=== PATIENT | female | born 1965 | race Caucasian/White ===

== ENCOUNTER 2019-10-14 14:12 | Emergency (ER) | payer SELFPAY ==
[~2019-10-14] VITALS: Ht 167.6 cm; Wt 43.1 kg
[2019-10-14 15:53] LABS: Chloride 110 mmol/L (98-107); Potassium 3.8 mmol/L (3.5-5.1); Sodium 142 mmol/L (136-145)
[2019-10-14 15:59] LABS: Alanine Aminotransferase 18 U/L (13-56); Albumin 4.1 g/dL (3.4-5.0); Alkaline Phosphatase 67 U/L (45-117); Anion Gap 8 (5-15); Aspartate Aminotransferase 18 U/L (15-37); Bilirubin, Total 0.5 mg/dL (0.2-1.0); Blood Urea Nitrogen 18 mg/dL (7-18); Calcium 9.4 mg/dL (8.5-10.1); Carbon Dioxide 24 mmol/L (21-32); GFR African American 93 mL/min; GFR Non-African American 77 mL/min; Glucose 69 mg/dL (74-106); Magnesium 2.1 mg/dL (1.6-2.6); Total Protein 7.6 g/dL (6.4-8.2)
[2019-10-14 17:20] LABS: Basophils # (auto) 0.1 10 ^3/uL (0-0.2); Eosinophils # (auto) 0.1 10 ^3/uL (0-0.8); Eosinophils % (auto) 0.8 % (0.0-7.0); Hematocrit 49.7 % (36.0-46.0); Hemoglobin 16.4 g/dL (12.2-16.2); Lymphocytes % (auto) 39.8 % (10.0-50.0); Mean Corpuscular Hemoglobin 31.1 pg (28.0-32.0); Mean Corpuscular Volume 94.2 fL (80.0-100.0); Monocytes # (auto) 0.6 10 ^3/uL (0-1.3); Monocytes % (auto) 7.4 % (0.0-12.0); Neutrophils # (auto) 3.8 10 ^3/uL (1.6-8.6); Nucleated Red Blood Cells % 0.2 %; Platelet Count (auto) 212 10^3/uL (140-450); Red Blood Cells 5.27 10^6/uL (4.0-5.20); Red Cell Distribution Width 13.2 % (11.8-14.3); White Blood Cell 7.5 10^3/uL (4.4-10.8)
[2019-10-14 22:32] LABS: Urine Bacteria FEW /hpf (None Seen); Urine Blood Negative /uL (Negative); Urine Hyaline Cast FEW /lpf (0 - 2); Urine Mucus FEW (None Seen); Urine Specific Gravity 1.029 (1.001-1.035); Urine WBC 24 /hpf (0 - 5)
[2019-10-14 22:40] LABS: Alcohol, Urine < 3.0 mg/dL (0-10); Amphetamine Screen, Urine NEGATIVE (NEGATIVE); Barbiturate Scree,Urine NEGATIVE (NEGATIVE); Benzodiazephine Screen, Urine NEGATIVE (NEGATIVE); Cannabinoid Screen, Urine NEGATIVE (NEGATIVE); Cocaine Screen, Urine NEGATIVE (NEGATIVE); Opiate Scree,Urine NEGATIVE (NEGATIVE); Phencyclidine Screen, Urine NEGATIVE (NEGATIVE)
[2019-10-14] MEDS ORDERED: cefTRIAXone SOD 1,000 MG VL IM ONE (22:45)
[2019-10-14] MEDS ORDERED: LIDOCAINE 1% HCL (LOCAL ANESTH.) INJ 20ML MDV ONE (23:04)
[2019-10-14 23:09] VITALS: BP 127/96
== END 2019-10-14 23:23 | disposition home or self-care (01) ==
LOC: ER 14:12
DX: N39.0 Urinary tract infection, site not specified (principal); F20.9 Schizophrenia, unspecified; Z68.1 Body mass index [BMI] 19.9 or less, adult
CPT/HCPCS: 36415; 80053; 80307; 81001; 83735; 84484; 85025; 96372; 99284; J0696; J2001

== ENCOUNTER 2019-10-23 13:27 | Inpatient (IN) | payer OTHER ==
[~2019-10-23] VITALS: Ht 165.1 cm; Wt 46.6 kg
[2019-10-23] MEDS ORDERED: LORazepam 2MG/ML-1ML VIAL IV ONE (13:45)
[2019-10-23] MEDS ORDERED: SODIUM CHLORIDE 0.9% 500 ML IV ONE (13:45)
[2019-10-23 14:11] LABS: Basophils # (auto) 0 10 ^3/uL (0-0.2); Basophils % (auto) 0.6 % (0.0-2.0); Eosinophils # (auto) 0 10 ^3/uL (0-0.8); Eosinophils % (auto) 0.5 % (0.0-7.0); Hematocrit 45.6 % (36.0-46.0); Hemoglobin 15.3 g/dL (12.2-16.2); Lymphocytes # (auto) 1.6 10 ^3/uL (0.4-5.4); Lymphocytes % (auto) 30.9 % (10.0-50.0); Mean Corpuscular Hemoglobin 31.4 pg (28.0-32.0); Mean Corpuscular Hgb Conc. 33.5 g/dL (32.0-36.0); Mean Corpuscular Volume 93.8 fL (80.0-100.0); Monocytes # (auto) 0.4 10 ^3/uL (0-1.3); Monocytes % (auto) 8.6 % (0.0-12.0); Neutrophils # (auto) 3.1 10 ^3/uL (1.6-8.6); Neutrophils % (auto) 59.4 % (37.0-80.0); Nucleated Red Blood Cells % 0.1 %; Platelet Count (auto) 185 10^3/uL (140-450); Red Blood Cells 4.87 10^6/uL (4.0-5.20); Red Cell Distribution Width 13.1 % (11.8-14.3); White Blood Cell 5.2 10^3/uL (4.4-10.8)
[2019-10-23 14:34] LABS: Albumin 4.1 g/dL (3.4-5.0); Anion Gap 10 (5-15); Blood Urea Nitrogen 15 mg/dL (7-18); Calcium 9.4 mg/dL (8.5-10.1); Carbon Dioxide 24 mmol/L (21-32); Chloride 104 mmol/L (98-107); Glucose 55 mg/dL (74-106); Potassium 4.8 mmol/L (3.5-5.1); Sodium 138 mmol/L (136-145)
[2019-10-23 14:39] LABS: Alanine Aminotransferase 18 U/L (13-56); Alkaline Phosphatase 61 U/L (45-117); Aspartate Aminotransferase 14 U/L (15-37); BUN/Creatinine Ratio 13.4; Bilirubin, Total 0.6 mg/dL (0.2-1.0); Blood Alcohol < 3.0 mg/dL (0-5); GFR African American 65 mL/min; GFR Non-African American 53 mL/min; Total Protein 7.4 g/dL (6.4-8.2)
[2019-10-23] MEDS: ACCU-CHEK COMFORT CURVE STRIP VI SCH ×2 (16:00→21:37)
[2019-10-23] MEDS ORDERED: MORPHINE SULF INJ 2 MG/ML SYRINGE 1ML IV PRN (16:00)
[2019-10-23] MEDS ORDERED: DEXTROSE (50%) 50ML SYRG IV PRN (16:00)
[2019-10-23] MEDS: InsuLIN REG 1unit/0.01ml Soln (100units/ml) SC SCH ×2 (16:00→20:00)
[2019-10-23] MEDS ORDERED: D5W/SOD CHLO 0.9% 1,000 ML IV ONE (16:00)
[2019-10-23] MEDS ORDERED: hydrALAZINE HCL 20 MG/ML VL IV PRN (16:00)
[2019-10-23] MEDS ORDERED: NITROGLYCERIN 0.4 MG SL TAB SL PRN (16:00)
--- NOTE | 2019-10-23 19:47 | NUR ---
Telemetry admit from EMILEE HOUGH admitted to Telemetry unit after SBAR received. Patient oriented to JAKY garcia RN, thoreau unit, room 89, bed A, and unit policies regarding patient care and visiting hours. Patient now on continuous telemetry monitoring, tele box # 57 and telemetry reading on arrival to unit is Sinus Rhythm. Patient placed on bed, on room air O2 100%, weighed 39.1kg on bedscale, encouraged to call if they need something. All questions and concerns addressed, patient verbalized understanding. Assessment performed, skin is intact, patient able to move all extremities without limitations, patient c/o abdominal pain 6/10, explained that she has not been eating and her last B/M was 2 weeks ago. Patient was given apple juice, tolerated well. Will cont to monitor.
[2019-10-23 22:00] VITALS: BP 140/85
[2019-10-24] VITALS (7 sets, daily range): BP systolic 96–131; BP diastolic 57–70
[2019-10-24] MEDS: ACCU-CHEK COMFORT CURVE STRIP VI SCH ×6 (00:10→20:00)
[2019-10-24] MEDS: InsuLIN REG 1unit/0.01ml Soln (100units/ml) SC SCH ×6 (03:39→20:00)
--- NOTE | 2019-10-24 07:38 | NUR ---
Opening Shift Note Received patient from noc shift rn, awake and alert. No S/S of distress/SOB, denies pain at this time. Bed in lowest and locked position, bed rails raised x2, call light within reach. Instructed on POC and to call for assist PRN, will continue to monitor for changes Q1hr and PRN.
[2019-10-24 09:31] LABS: Basophils # (auto) 0.1 10 ^3/uL (0-0.2); Basophils % (auto) 1.2 % (0.0-2.0); Eosinophils # (auto) 0.1 10 ^3/uL (0-0.8); Eosinophils % (auto) 2.6 % (0.0-7.0); Hematocrit 38.2 % (36.0-46.0); Hemoglobin 12.9 g/dL (12.2-16.2); Lymphocytes # (auto) 1.2 10 ^3/uL (0.4-5.4); Lymphocytes % (auto) 28.3 % (10.0-50.0); Mean Corpuscular Hemoglobin 31.5 pg (28.0-32.0); Mean Corpuscular Hgb Conc. 33.8 g/dL (32.0-36.0); Mean Corpuscular Volume 93.1 fL (80.0-100.0); Monocytes # (auto) 0.5 10 ^3/uL (0-1.3); Neutrophils # (auto) 2.4 10 ^3/uL (1.6-8.6); Neutrophils % (auto) 56.9 % (37.0-80.0); Platelet Count (auto) 170 10^3/uL (140-450); Red Cell Distribution Width 13.1 % (11.8-14.3); White Blood Cell 4.2 10^3/uL (4.4-10.8)
[2019-10-24 09:47] LABS: Albumin 3.1 g/dL (3.4-5.0); Calcium 8.3 mg/dL (8.5-10.1); Potassium 3.7 mmol/L (3.5-5.1)
[2019-10-24 09:49] LABS: Lactic Acid w/Reflex 2.8 mmol/L (0.4-2.0)
[2019-10-24 09:52] LABS: Bilirubin, Total 0.3 mg/dL (0.2-1.0); Total Protein 5.7 g/dL (6.4-8.2)
[2019-10-24] MEDS ORDERED: ENOXAPARIN SOD 30 MG/0.3 ML SYRINGE SC SCH (10:00)
[2019-10-24] MEDS ORDERED: PANTOPRAZOLE 40 MG/10 ML VIAL INJ IV SCH (10:00)
--- NOTE | 2019-10-24 10:25 | NUR ---
patient refused AM medication, protonix and lovenox. Stated "I don't think I need it." Patient educated on meds but continues to refuse.
--- NOTE | 2019-10-24 13:33 | NUR ---
attempted to contact family on contact list for home medication. Unable to reach anyone at this time. Will try at a later time
--- NOTE | 2019-10-24 14:39 | NUR ---
Nutrition Assessment/Consult Notes Please refer to link for full assessment notes. Est Energy needs: [address] kcals (20-23 kcal/kgBW) Est Protein needs: 47-59 gms/day (0.8-1.0 gm/kgBW) Will continue to monitor and reassess prn. Addendum: 10/24/19 at [address] Amended: Links added.
--- NOTE | 2019-10-24 15:30 | NUR ---
Tele Psych: Patient connected and talking to psychiatrist via [facility]
--- NOTE | 2019-10-24 18:10 | NUR ---
Tele psych report in the chart.
--- NOTE | 2019-10-24 19:20 | NUR ---
Opening Shift Note Received report from david Leger RN. Assumed care of patient, awake and alert. No S/S of distress/SOB or pain. Instructed on POC and to call for assist PRN, will continue to monitor for changes Q1hr and PRN. Bed placed in lowest position and call light within reach.
--- NOTE | 2019-10-24 22:15 | NUR ---
Dr Dill at bedside.
[2019-10-24] MEDS ORDERED: LORazepam 2MG/ML-1ML VIAL IV PRN (22:45)
[2019-10-25] VITALS (7 sets, daily range): BP systolic 124–146; BP diastolic 70–86
[2019-10-25] MEDS: InsuLIN REG 1unit/0.01ml Soln (100units/ml) SC SCH ×6 (04:00→20:00)
--- NOTE | 2019-10-25 04:00 | NUR ---
ROUNDS PATIENT IS AWAKE AND ALERT, BUT REFUSED TO RESPOND TO SIMPLE QUESTIONS. PATIENT SEEMED UNHAPPY WHEN STAFF WOKE HER UP TO DO VITALS AND BLOOD SUGAR CHECK. WILL MONITOR.
[2019-10-25] MEDS: ACCU-CHEK COMFORT CURVE STRIP VI SCH ×6 (04:18→20:00)
--- NOTE | 2019-10-25 07:37 | NUR ---
Opening Shift Note Received patient from noc shift rn, eyes closed in bed but easily aroused by name call. No S/S of distress/SOB, denies pain at this time. Patient is not verbalizing with responses, only shakes head or remains still even with multiple prompt to speak. Bed in lowest and locked position, bed rails raised x2, call light within reach. Instructed on POC and to call for assist PRN, will continue to monitor for changes Q1hr and PRN.
--- NOTE | 2019-10-25 10:00 | NUR ---
Dr. Levi at bedside Ordered Ativan 1mg Q8hr straight cath to obtain sample for UA/UD and sitter
[2019-10-25] MEDS ORDERED: LORazepam 0.5 MG TAB PO PRN (10:15)
[2019-10-25] MEDS: D5W/SOD CHLO 0.9% 1,000 ML IV SCH (12:01)
--- NOTE | 2019-10-25 12:04 | NUR ---
EEG- PATIENT REFUSED ELECTROENCEPHALOGRAM @ 09:20.
--- NOTE | 2019-10-25 12:14 | NUR ---
patient refused ativan, after requesting for it. Will waste at this time.
--- NOTE | 2019-10-25 12:15 | NUR ---
Patient is refusing straight cath as ordered for UA/UD, stating "I want to go home"
--- NOTE | 2019-10-25 13:00 | NUR ---
patient refused EEG when staff attempted Also refusing to eat.
--- NOTE | 2019-10-25 13:40 | NUR ---
PATIENT WAS UNCOOPERATIVE DURING TELE-PSYCH EVAL. REFUSED TO TALK TO THE DOCTOR.
--- NOTE | 2019-10-25 14:00 | NUR ---
SPOKE TO DR. Tori SANFORD ABOUT PATIENT'S REFUSAL FOR TREATMENT. NEW TELE PSYCH CONSULT PLACED.
--- NOTE | 2019-10-25 14:22 | NUR ---
SPOKE TO CHARGE NURSEMARILY ABOUT MD'S ORDER FOR SITTER AT BEDSIDE. PER CHARGE NURSE, PATIENT DOES NOT MEET CRITERIA FOR A SITTER.
--- NOTE | 2019-10-25 18:30 | NUR ---
Urine collected and sent to lab for UA/UDS per MD's order
[2019-10-25 19:12] LABS: Urine Bacteria NONE SEEN /hpf (None Seen); Urine Blood Negative /uL (Negative); Urine Hyaline Cast FEW /lpf (0 - 2); Urine Mucus FEW (None Seen); Urine Specific Gravity 1.017 (1.001-1.035); Urine WBC 40 /hpf (0 - 5)
--- NOTE | 2019-10-25 19:25 | NUR ---
Opening Shift Note Assumed care of patient, awake and alert. No S/S of distress/SOB or pain, but patient refused to answer questions. Instructed on POC and to call for assist PRN, will continue to monitor for changes Q1hr and PRN. Bed placed in lowest position, and call light within reach.
[2019-10-25 19:29] LABS: Alcohol, Urine < 3.0 mg/dL (0-10); Amphetamine Screen, Urine NEGATIVE (NEGATIVE); Barbiturate Scree,Urine NEGATIVE (NEGATIVE); Benzodiazephine Screen, Urine POSITIVE (NEGATIVE); Cannabinoid Screen, Urine NEGATIVE (NEGATIVE); Cocaine Screen, Urine NEGATIVE (NEGATIVE); Opiate Scree,Urine NEGATIVE (NEGATIVE); Phencyclidine Screen, Urine NEGATIVE (NEGATIVE)
--- NOTE | 2019-10-25 21:00 | NUR ---
Offered something to eat and drink Offered patient and placed 2 jellos and cold drink of water and 2 juices on the table. Still no response.
[2019-10-26] MEDS: ACCU-CHEK COMFORT CURVE STRIP VI SCH ×6 (00:18→20:30)
[2019-10-26] MEDS: D5W/SOD CHLO 0.9% 1,000 ML IV SCH ×3 (00:19→18:00)
[2019-10-26] MEDS: InsuLIN REG 1unit/0.01ml Soln (100units/ml) SC SCH ×6 (04:00→20:00)
[2019-10-26 05:00] VITALS: BP 133/74
--- NOTE | 2019-10-26 06:09 | NUR ---
ROUNDS Patient still not talking. Patient opens eyes but not responding to questions. Jellos and juices untouched and still on the table. Patient refused to eat or drink last night.
[2019-10-26 09:00] VITALS: BP 155/84
--- NOTE | 2019-10-26 09:30 | NUR ---
Attempted PT treatment, pt would not open eyes to participate in PT session.
[2019-10-26 10:09] LABS: Free T4 (Free Thyroxine) 0.79 ng/dL (0.89-1.76)
--- NOTE | 2019-10-26 12:13 | NUR ---
PT DOES NOT RESPOND TO VERBAL OR TACTILE STIMULI. AT APPROX. 1130, NOTED EYES TO BE OPENED AND PT MOTIONED TOWARD THE BATHROOM. AMBULATED PT TO BATHROOM, URINATED LARGE AMOUNT TEA COLORED URINE. BLOOD SUGAR 104. AT THIS TIME PT OFF FLOOR FOR MRI. CONTINUES TO BE NONVERBAL. MONITORING CLOSELY.
[2019-10-26 13:00] VITALS: BP 138/82
--- NOTE | 2019-10-26 15:28 | NUR ---
EEG- PT REFUSED ELECTROENCEPHALOGRAM @ 14:08
--- NOTE | 2019-10-26 15:52 | NUR ---
PT REFUSED EEG.
--- NOTE | 2019-10-26 16:02 | NUR ---
assessment re:bhavya consults Patient is a 54 year old catatonic female. Per patients Miquel and her daughter Danielle prior to admission patient lived home with her and needed assistance when she becomes catatonic. When she is not patient can function on her own. Per Miquel and Danielle the first time patient became catatonic was about 2 years ago. Patient did go to a psychiatrist at that time. Patient was diagnosed with catatonia/ schizophrenic. Per Danielle patient was doing well until she stopped taking her medication. Patient will need a tele psych and psych placement. Danielle and Miquel agree to psych placement. Addendum: 10/26/19 at 1616 by Ivis CORDERO Amended: Links added.
[2019-10-26 17:00] VITALS: BP 148/81
--- NOTE | 2019-10-26 18:17 | NUR ---
MRI COMPLETE AND RESULTED
--- NOTE | 2019-10-26 19:30 | NUR ---
Opening Shift Note Assumed care of patient, awake, flat affect, lying in bed. No S/S of distress/SOB, no facial grimace for pain. Patient not responding to questions, not moving, patient diagnosed with catatonia. Instructed on POC and to call for assist PRN, bed alarm on at all times for patient safety. Will continue to monitor for changes Q1hr and PRN.
[2019-10-26 22:00] VITALS: BP 158/90
[2019-10-27] MEDS: ACCU-CHEK COMFORT CURVE STRIP VI SCH ×6 (00:20→20:27)
[2019-10-27] MEDS: InsuLIN REG 1unit/0.01ml Soln (100units/ml) SC SCH ×6 (04:00→20:00)
[2019-10-27] MEDS: D5W/SOD CHLO 0.9% 1,000 ML IV SCH ×2 (04:04→14:00)
[2019-10-27 05:00] VITALS: BP 149/86
--- NOTE | 2019-10-27 07:14 | NUR ---
No significant change in the patient's status. No signs nor symptoms of respiratory distress, no facial grimace for pain. Bed alarm on at all times for patient safety. Report given to oncoming shift.
--- NOTE | 2019-10-27 09:25 | NUR ---
PT SITTING UPRIGHT, RIGID, FIXED GAZE. DROOLING. INCONT. LARGE AMT URINE. VERY STIFF. , OBI, UPDATED VIA TELEPHONE.
--- NOTE | 2019-10-27 10:00 | NUR ---
Attempted PT eval. Pt resisting and not following commands when attempting to assist out of bed. Pt unable to participate in physical therapy at this time.
--- NOTE | 2019-10-27 13:14 | NUR ---
EEG- PT REFUSED ELECTROENCEPHALOGRAM @11:19.
--- NOTE | 2019-10-27 14:16 | NUR ---
incont. of urine. pt continues to have a fixed stare, mute, catatonic. refuses to eat.
--- NOTE | 2019-10-27 14:50 | NUR ---
Nutrition Followup Note Wt 42.2kg Pt was awake at time of rounds. Per MD note pt catatonic, pt just stared and did not respond to any questions. Pt has a full liquid diet with poor po intake aeb pt with 1 intake of 25%, 1 intake of 50% and refused to eat per RN note. Consider adding Ensure Enlive TID if pt will consume oral supplements. If pt continues to refuse nutrition consider alternate nutrition. Est Energy needs: 9193-6964 kcals (25-30 kcal/kg IBW 56.8kg) Est Protein needs: 57-62 gms/day (1-1.1 gm/kg IBW 56.8kg) Will continue to monitor and reassess prn. Labs: POC gluc 121H, Alb 3.1L, Ca 8.3L BM: Pt with no BM noted per Rn note Skin: Bs 16 mod risk, full details in managed care coordinator note PES 1) Inadequate oral intake r/t pt with a poor appetite aeb 64% IBW, BMI of 13.9 kg/m2, pt refusal to eat Comments Will continue to monitor PO status, skin status, pertinent labs and weight trends. Will f/u in 3-5 days. 1) Continue to carefully monitor pt PO intake to meet at least 75% of meals 2) If pt appetite remains poor over the next 48 hours, consider supplemental nutrition support 3) Continue current plan of care Expected Outcomes/Goals: Pt appetite to improve Pt to advance to an oral diet
[2019-10-27 22:45] VITALS: BP 160/100
[2019-10-28] MEDS: InsuLIN REG 1unit/0.01ml Soln (100units/ml) SC SCH ×6 (00:58→22:00)
[2019-10-28] MEDS: ACCU-CHEK COMFORT CURVE STRIP VI SCH ×6 (00:59→22:43)
[2019-10-28] MEDS: D5W/SOD CHLO 0.9% 1,000 ML IV SCH ×3 (01:17→20:00)
--- NOTE | 2019-10-28 04:45 | NUR ---
Offered multiple times to eat and drink. Cued food/drink to mouth, and patient refuses each time. Will continue to monitor patient. Patient has and will be turned q2 hours or prn for skin breakdown prevention.
[2019-10-28 05:30] VITALS: BP 135/86
--- NOTE | 2019-10-28 07:20 | NUR ---
provided report to day rn. notified rn of patient refusing everything, eating, drinking, and procedures from days. also notified patient needs to be turned q 2 or prn and patient needs to be check consistently due to urine incontinence. and patient is non verbal
--- NOTE | 2019-10-28 08:00 | NUR ---
Opening shift note/spoke w family/refused accucheck Patient in bed with altered level of conscious unable to verbalize answer to questions. Patient does not acknowledge name when called an no attempts to communicate noted. Attempted to reposition patient at this time patient became verbal and stated she did not want to be moved. Patient updated on POC. Patient refusing accucheck reading at this time. Patient continues to pull arm away when attempting to obtain accucheck. Bed is in low position, locked, call light within reach. Education regarding use of call light given, patient passive to education given. Spoke with patient's over phone. Quick update given regarding patients current state. All questions and concerns addressed, will continue care.
--- NOTE | 2019-10-28 08:37 | NUR ---
Elevated BP Dr Tori Levi informed that Hydralazine PRN is not available per pharmacy to administer for elevated BP. Patient B/P reading is 158/98, HR 91. informed fluids have been stopped at this time. No new orders received by . Will continue to monitor.
[2019-10-28 09:00] VITALS: BP 158/98
--- NOTE | 2019-10-28 11:00 | NUR ---
WOUND CARE NOTE: PATIENT NOTED TO HAVE LOW RADHA SCORE OF 7, ADDED PATIENT TO SKIN INTEGRITY MONITORING. PATIENT WAS ADMITTED TO [facility] WITH DIAGNOSIS OF ALOC. SHE IS NOTED TO BE VERY THIN, WEIGHING ONLY 43 KG. PATIENT HAS PROMINENT BONY PROMINENCES. PATIENT IS IN CATATONIC STATE, NON VERBAL, IMMOBILE. SHE IS NOTED TO BE INCONTINENT OF URINE AT THIS TIME. PERICARE GIVEN ALONG WITH LINEN CHANGE. SHE HAS NO WOUNDS NOTED. APPLIED OPTIFOAM GENTLE SACRAL DRESSING TO UPPER SACRUM PREVENTATIVE. ORDERED SPECIALTY AIR MATTRESS AT THIS TIME. PATIENT TO BE PLACED, PENDING DELIVERY BY [facility]. SKIN/WOUND CARE PLAN IMPLEMENTED. RECOMMEND: FREQUENT TURN SCHEDULE Q 2 HOURS, PRN CONDITION PERMITS, WITH PRESSURE REDISTRIBUTION USING PILLOWS/WEDGES, BID/PRN APPLICATION WITH MOISTURE BARRIER CREAM, OPTIFOAM GENTLE SACRAL DRESSING, SPECIALTY AIR MATTRESS, DIETARY CONSULT FOR LOW RADHA SCORE, SKIN/WOUND CARE PLAN, CONTINUED MONITORING BY WOUND CARE TEAM.
[2019-10-28] MEDS ORDERED: DEXTROSE (50%) 50ML SYRG IV PRN (11:30)
--- NOTE | 2019-10-28 12:00 | NUR ---
Tele Psych request placed Per Dr. Tori Levi orders to [facility] Tele Psych request. Request has been placed at this time. Awaiting to be contacted by Psychiatrist.
--- NOTE | 2019-10-28 12:50 | NUR ---
Neurologist paged after info from family obtained. Spoke with patient's mom after password was verified. Family requesting update on patient's condition from MD. Both Dr. Tori Levi hospitalist and Dr. Dill Neurologist have been notified. Patient's mom informed me that patient has history of Pituitary tumor for over 10 years now. Information was provided to Dr. Dill over phone, new orders received at this time to obtain MRI of Pituitary gland with and without contrast. Will implement orders and continue to monitor.
--- NOTE | 2019-10-28 13:04 | NUR ---
RN communication Received call from Dr. Tori Levi informing this RN that requested update had been given to patient's by . Dr. Tori Levi approving and daughter to visit patient do to her rapid decline in condition on 10/29/2019 at 1100. cement railroad car loader Paras has been made aware of scheduled visit at this time.
[2019-10-28 13:07] VITALS: BP 129/76
[2019-10-28] MEDS ORDERED: GADOTERIDOL 279.3mg/mL 20ml Vial IV ONE (13:52)
--- NOTE | 2019-10-28 16:28 | NUR ---
PT WAS UNABLE TO PARTICIPATE IN P.T TODAY. Addendum: 10/28/19 at 1629 by KRISTINE JARRETT PTT Amended: Links added.
[2019-10-28 17:00] VITALS: BP 115/72
--- NOTE | 2019-10-28 21:00 | NUR ---
patient transferred to special mattress.
[2019-10-28 22:00] VITALS: BP 150/81
--- NOTE | 2019-10-28 22:19 | NUR ---
Spoke to Min from tele psyc center [phone]. Min advised me tele psyc completed at 0300 pm eastern time and he will send report via fax. fax number provided. awaiting report.
--- NOTE | 2019-10-28 23:00 | NUR ---
Report faxed and placed in physical chart.
[2019-10-29] MEDS: D5W/SOD CHLO 0.9% 1,000 ML IV SCH ×2 (00:28→16:00)
--- NOTE | 2019-10-29 03:41 | NUR ---
patient has not voided for shift patient has shea order. bladder scan 320 Shea catheter insertion Patient assessed and determined to be in need of shea catheter. Order placed in dayshift from Gurmeet PONCE. Patient educated on catheter and reason for insertion. Shea catheter [14] guage Bhutanese inserted with clean sterile technique. Patient tolerated well. post shea insertion output 300
[2019-10-29 05:00] VITALS: BP 157/94
[2019-10-29] MEDS: InsuLIN REG 1unit/0.01ml Soln (100units/ml) SC SCH ×4 (06:56→22:00)
[2019-10-29] MEDS: ACCU-CHEK COMFORT CURVE STRIP VI SCH ×4 (06:57→22:21)
--- NOTE | 2019-10-29 07:25 | NUR ---
Provided report to day RN, patient is resting in bed with no signs of distress. Patient has strict turned/repositioned q2 hours or prn throughout entire shift. Patient has been offered nutrition each time we turned-patient refused. shea draining and patient is on specialty mattress.
--- NOTE | 2019-10-29 07:30 | NUR ---
Opening shift note Patient in bed with altered level of conscious unable to verbalize answer to questions. Patient does not acknowledge name when called an no attempts to communicate noted. Patient turned to right side at this time. Strict turn q2 hr orders in place. Patient offered breakfast at this time, patient refusing to eat or drink. Rachel secured below waistline draining clear yellow urine. Bed is in low position, locked, call light within reach. Will continue care.
--- NOTE | 2019-10-29 08:23 | NUR ---
Pt has been unable to participate in physical therapy x3 days. Will discharge pt from caseload until she is able to participate.
[2019-10-29 09:00] VITALS: BP 153/98
--- NOTE | 2019-10-29 11:05 | NUR ---
Pt Family at bedside Approved visit to family by MD. and patient's mom at bedside at this time.
--- NOTE | 2019-10-29 11:20 | NUR ---
Dr. Levi at bedside updating family Dr. Levi at bedside updating family regarding patient's condition and POC to place 5150 hold on patient and transfer to a Psychiatry facility as soon as it is possible. All questions and concerns addressed at this time by . This RN was present at bedside.
[2019-10-29] MEDS ORDERED: LORazepam 0.5 MG TAB PO PRN (11:30)
[2019-10-29] MEDS ORDERED: LORazepam 2MG/ML-1ML VIAL IV SCH ×2 (12:00)
[2019-10-29] MEDS: LORazepam 2MG/ML-1ML VIAL IV PRN ×2 (12:00→22:53)
--- NOTE | 2019-10-29 12:50 | NUR ---
Patient AOx1 and verbal Upon hourly rounds patient was observed to be awake and speaking to self. No constriction or abnormal flexion noted on arms at this time. Neuro checked perform patient alert to self. Patient remains mildly confused and is having audiovisual hallucinations at this time. Per patient there is a little girl in the room called Mateo that is playing with her ball. Patient offered food at this time, patient continues to refuse food. No agitation or distress noted. Patient requesting to speak with Miquel (). called at this time. Will continue care.
[2019-10-29 13:00] VITALS: BP 145/88
--- NOTE | 2019-10-29 14:20 | NUR ---
Patient found on floor by Ellen RN at 1405. Patient helped back to bed. This RN was notified and came in room to assess patient. Right forearm noted to have been bleeding s/p IV removal. No active bleeding at this time, site covered with gauze and secured with [place]. Rachel found laying in bed with balloon intact. No trauma noted to patient, catheter intact. Complete body inspection performed at this time, no open wounds noted. VS taken and stable at this time. Patient repositioned for comfort, no complains of pain at this time. Bed alarm on, side rails x2 up, patient instructed to call for assistance and reminded she can not get out of bed without help. Patient verbalized understanding and repeated information provided. Dr. Levi has been made aware of incident. No new orders received at this time.
--- NOTE | 2019-10-29 14:40 | NUR ---
Patient refusing IV placement Patient refusing IV to be placed at this time. Patient informed of risks of not having IV line present during hospitalizations and in case of emergency. Patient verbalizes understanding and continues to refuse she states she has been connected to an IV line for too long and she is sore from her arms. Will attempt IV placement at a later time. has been informed of refusal.
--- NOTE | 2019-10-29 14:49 | NUR ---
Nutrition Followup Note Wt 42.9kg Pt did not respond when attempting to ask questions this morning. Per pt DC order pt is awaiting transfer to Inpatient Facility. Consider starting pt on alternate nutrition as pt continues to refuse meals. Consider starting pt on Osmolite 1.2 at 50 ml/hr. Est Energy needs: 3446-0301 kcals (25-30 kcal/kg IBW 56.8kg) Est Protein needs: 57-62 gms/day (1-1.1 gm/kg IBW 56.8kg) Will continue to monitor and reassess prn. Labs: Pt with no new labs: Alb 3.1L, Ca 8.3L POC GLUC 92 WNL BM: Pt with no BM noted per Rn note Skin: Bs 7 high risk, full details in occasional caregiver note PES 1) Inadequate oral intake r/t pt with a poor appetite aeb 64% IBW, BMI of 13.9 kg/m2, pt refusal to eat Comments Will continue to monitor PO status, skin status, pertinent labs and weight trends. Will f/u in 3-5 days. 1) Consider alternate nutrition per MD approval. 2) If alternate nutrition recommended consider Osmolite 1.2 at 50 ml/hr per MD approval Expected Outcomes/Goals: Pt appetite to improve Pt to advance to an oral diet
[2019-10-29] MEDS ORDERED: ACETAMINOPHEN 325 MG TAB PO PRN (15:15)
[2019-10-29 17:00] VITALS: BP 100/72
--- NOTE | 2019-10-29 19:00 | NUR ---
Opening Shift Note Assumed care of patient, awake, flat affect, lying in bed. No S/S of distress/SOB, no facial grimace for pain. Patient not responding to questions, not moving, patient diagnosed with catatonia. Instructed on POC and to call for assist PRN, bed alarm on at all times for patient safety. Will continue to monitor for changes. Sitter in the room for safety. Noted patient has no iv access.
--- NOTE | 2019-10-29 22:55 | NUR ---
IV insertion IV access obtained, via clean sterile technique by inserting 22 gauge catheter at right forearm after 1 attempt. IV secured properly. No trauma to site. Patient tolerated well.
[2019-10-30] MEDS: D5W/SOD CHLO 0.9% 1,000 ML IV SCH ×4 (02:14→22:00)
[2019-10-30 06:23] VITALS: BP 113/67
[2019-10-30] MEDS: ACCU-CHEK COMFORT CURVE STRIP VI SCH ×4 (06:25→23:03)
[2019-10-30] MEDS: InsuLIN REG 1unit/0.01ml Soln (100units/ml) SC SCH ×4 (06:26→22:00)
--- NOTE | 2019-10-30 08:06 | NUR ---
OPENING SHIFT NOTE Assumed care of patient, awake with flat affect. Does not respond to questions. No S/S of distress/SOB or pain. Instructed on POC and to call for assist PRN, will continue to monitor for changes Q1hr and PRN. Bed is locked and in lowest position. Call light within reach.
--- NOTE | 2019-10-30 10:00 | NUR ---
Faxed IP [phone] placement request to the following locations: [facility] [phone], [facility] [phone], [facility] [phone], [facility] [phone] and [facility] [phone]. Awaiting reply back for acceptance of patient.
--- NOTE | 2019-10-30 10:44 | NUR ---
PT's is requesting to have md call him. Stated he spoke with PT yesterday and this morning. However pt had flat affect during assessment. stated this was not in line with his conversation with pt.
--- NOTE | 2019-10-30 12:17 | NUR ---
Called and spoke with Will regarding only receiving a few pages of the intake information for bed placement. He will fax over everything once more to continue.
--- NOTE | 2019-10-30 13:28 | NUR ---
Received intake and information has been sent out to [facility]. Will keep facility informed of any updates.
[2019-10-30] MEDS: LORazepam 2MG/ML-1ML VIAL IM SCH (23:02)
--- NOTE | 2019-10-31 03:42 | NUR ---
Called the following facilities [facility] s/w Devin-no bed availability [facility]-no answer-not able to leave message. Will try again
[2019-10-31] MEDS: InsuLIN REG 1unit/0.01ml Soln (100units/ml) SC SCH ×4 (06:17→21:34)
[2019-10-31] MEDS: ACCU-CHEK COMFORT CURVE STRIP VI SCH ×4 (06:17→21:35)
--- NOTE | 2019-10-31 07:30 | NUR ---
Opening Shift Note Assumed care of patient, sleeping sitter at bedside. No S/S of distress/SOB or pain. Patient is placed on a 5150 hold, will continue to monitor for changes Q1hr and PRN.
[2019-10-31 09:00] VITALS: BP 145/68
[2019-10-31] MEDS: D5W/SOD CHLO 0.9% 1,000 ML IV SCH ×2 (09:22→16:48)
[2019-10-31] MEDS: LORazepam 2MG/ML-1ML VIAL IM SCH ×2 (10:32→21:38)
--- NOTE | 2019-10-31 12:30 | NUR ---
MEGHANN wang paged regarding discharge, awaiting call back.
[2019-10-31 13:00] VITALS: BP 136/71
--- NOTE | 2019-10-31 15:08 | NUR ---
Patients is requesting to see patient if possible, awaiting management.
[2019-10-31 17:00] VITALS: BP 127/79
--- NOTE | 2019-10-31 19:30 | NUR ---
Opening Shift Note Assumed care of patient, awake and alert. No S/S of distress/SOB or pain. Sitter at bedside.Instructed on POC and to call for assist PRN, will continue to monitor for changes Q1hr and PRN.
[2019-10-31 22:17] VITALS: BP 134/79
[2019-11-01] VITALS (7 sets, daily range): BP systolic 127–161; BP diastolic 74–94
[2019-11-01] MEDS: D5W/SOD CHLO 0.9% 1,000 ML IV SCH ×2 (00:07→14:53)
--- NOTE | 2019-11-01 02:25 | NUR ---
bus monitor called stated pt is going to 2nd heart degree block, EKG done, VS stable.
[2019-11-01] MEDS: ACCU-CHEK COMFORT CURVE STRIP VI SCH ×4 (06:31→23:58)
[2019-11-01] MEDS: InsuLIN REG 1unit/0.01ml Soln (100units/ml) SC SCH ×4 (06:31→22:00)
--- NOTE | 2019-11-01 07:30 | NUR ---
Opening Shift Note Assumed care of patient, awake and alert, not talking, catatonic, can speak little words and make hand signals. No S/S of distress/SOB or pain. Instructed on POC and to call for assist PRN, will continue to monitor for changes Q1hr and PRN.
[2019-11-01] MEDS: LORazepam 2MG/ML-1ML VIAL IM SCH ×2 (11:17→21:09)
--- NOTE | 2019-11-01 15:13 | NUR ---
Nutrition Followup Note Wt 42.9kg Pt did not respond when attempting to ask questions this morning. Pt is awaiting transfer to [facility] facility. Pt diet advanced to regular per MD order. Pt continues to have 0% po intake, one intake of 50% on 10/30 per Rn note. Consider adding Ensure Enlive TID or alternate nutrition. Est Energy needs: 0370-8412 kcals (25-30 kcal/kg IBW 56.8kg) Est Protein needs: 57-62 gms/day (1-1.1 gm/kg IBW 56.8kg) Will continue to monitor and reassess prn. Labs: Pt with no new labs: Alb 3.1L, Ca 8.3L BM: Pt with no BM noted per Rn note Skin: Bs 7 high risk, full details in daycare worker note PES 1) Inadequate oral intake r/t pt with a poor appetite aeb 64% IBW, BMI of 13.9 kg/m2, pt refusal to eat Comments Will continue to monitor PO status, skin status, pertinent labs and weight trends. Will f/u in 3-5 days. 1) Consider alternate nutrition per MD approval. 2) If alternate nutrition recommended consider Osmolite 1.2 at 50 ml/hr per MD approval Expected Outcomes/Goals: Pt appetite to improve
--- NOTE | 2019-11-01 19:30 | NUR ---
Opening Shift Note Assumed care of patient, sleeping with eyes closed. No S/S of distress/SOB or pain. Sitter at bedside.Instructed on POC and to call for assist PRN, will continue to monitor for changes Q1hr and PRN.
--- NOTE | 2019-11-01 20:35 | NUR ---
Dr. Dill at bedside. ordered not to give ativan if pt is sleeping.
[2019-11-02] MEDS: D5W/SOD CHLO 0.9% 1,000 ML IV SCH ×3 (00:43→22:18)
[2019-11-02 00:55] VITALS: BP 144/81
--- NOTE | 2019-11-02 03:15 | NUR ---
pt was moved to 286A due to ants in B bed
[2019-11-02 05:00] VITALS: BP 144/82
[2019-11-02] MEDS: ACCU-CHEK COMFORT CURVE STRIP VI SCH ×4 (06:53→22:18)
[2019-11-02] MEDS: InsuLIN REG 1unit/0.01ml Soln (100units/ml) SC SCH ×4 (06:53→22:00)
--- NOTE | 2019-11-02 07:25 | NUR ---
Opening Shift Note Assumed care of patient, resting with eyes closed. No S/S of distress/SOB or pain. Bed locked in lowest position, side rails up x2, call light within reach. Sitter at bedside for safety. Will continue to monitor for changes Q1hr and PRN.
[2019-11-02 09:14] VITALS: BP 138/83
[2019-11-02] MEDS: LORazepam 2MG/ML-1ML VIAL IM SCH (10:00)
--- NOTE | 2019-11-02 10:30 | NUR ---
Patient family at bedside Approved visit by warehouse man and charge loader. at bedside at this time.
[2019-11-02 12:22] VITALS: BP 136/72
[2019-11-02] MEDS: LORazepam 2MG/ML-1ML VIAL IV PRN (12:47)
[2019-11-02 16:43] VITALS: BP 144/78
[2019-11-02] MEDS: LORazepam 2MG/ML-1ML VIAL IV SCH (17:57)
--- NOTE | 2019-11-02 19:35 | NUR ---
Opening Shift Note Assumed care of patient, awake, flat affect, non-responsive, catatonic? Sitter at bedside for patient safety. No S/S of distress/SOB or pain. Instructed on POC and to call for assist PRN, will continue to monitor for changes Q1hr and PRN.
[2019-11-02 22:00] VITALS: BP 134/76
--- NOTE | 2019-11-03 00:02 | NUR ---
Call Center aware pt still needs placement , at this time there are no beds available at any of the designated facilities , will continue to find placement.
--- NOTE | 2019-11-03 00:15 | NUR ---
PER JOSI, patient ate some of her chocolate cake and drank some water. Patient is currently asleep again. Addendum: 11/04/19 at 0145 by Ej Oliveros RN *wrong time* 11/04/19 @ 0015
[2019-11-03 01:00] VITALS: BP 139/82
[2019-11-03 05:00] VITALS: BP 133/77
[2019-11-03] MEDS: D5W/SOD CHLO 0.9% 1,000 ML IV SCH (06:20)
[2019-11-03] MEDS: LORazepam 2MG/ML-1ML VIAL IV SCH ×5 (06:20→18:07)
[2019-11-03] MEDS: InsuLIN REG 1unit/0.01ml Soln (100units/ml) SC SCH ×4 (07:00→22:00)
[2019-11-03] MEDS: ACCU-CHEK COMFORT CURVE STRIP VI SCH ×4 (07:03→22:00)
--- NOTE | 2019-11-03 07:16 | NUR ---
Opening Shift Note Assumed care of patient, awake, flat affect, non-responsive, catatonic? Sitter at bedside for patient safety. No S/S of distress/SOB or pain. Instructed on POC and to call for assist PRN, will continue to monitor for changes Q1hr and PRN. Addendum: 11/03/19 at 0717 by Lorena Duckworth RN incorrect time
--- NOTE | 2019-11-03 07:18 | NUR ---
No significant change in patient's status. Report will be given to oncoming RN.
[2019-11-03 09:00] VITALS: BP 130/76
--- NOTE | 2019-11-03 09:27 | NUR ---
Opening Shift Note Assumed care of patient, awake and alert. No S/S of distress/SOB or pain. Instructed on POC and to call for assistance PRN, will continue to monitor for changes bed is at lowest height and bed rails up x2 Q1hr and PRN.
[2019-11-03] MEDS: SODIUM CHLORIDE 0.9% 1,000 ML IV SCH ×2 (10:45→20:30)
--- NOTE | 2019-11-03 11:21 | NUR ---
PRESS OPERATOR AUTOMATIC SPOKE TO CARYN ELENA SHE TOLD ME THAT THEY ARE STILL WORKING ON A BED PLACEMENT
[2019-11-03 13:00] VITALS: BP 139/82
[2019-11-03 17:15] VITALS: BP 139/90
--- NOTE | 2019-11-03 19:25 | NUR ---
Opening Shift Note Assumed care of patient. Patient is resting in bed. Patient is unresponsive to name or touch. Per dayshift RN, patient is catatonic. Sitter is present at bedside. Patient has been cleaned and placed on clean linens. Air mattress has been turned on. No S/S of distress/SOB or pain. Instructed on POC and will continue to monitor for changes Q1hr and PRN.
[2019-11-03 22:00] VITALS: BP 152/79
--- NOTE | 2019-11-03 22:44 | NUR ---
Notified Jasbir VARMA , at this time there are still no beds at any of the designated facilities , will continue to look for placement.
[2019-11-04 05:00] VITALS: BP 119/66
[2019-11-04] MEDS: LORazepam 2MG/ML-1ML VIAL IV SCH ×4 (06:00→17:11)
[2019-11-04] MEDS: SODIUM CHLORIDE 0.9% 1,000 ML IV SCH ×2 (06:00→15:37)
[2019-11-04] MEDS: ACCU-CHEK COMFORT CURVE STRIP VI SCH ×4 (06:45→22:00)
[2019-11-04] MEDS: InsuLIN REG 1unit/0.01ml Soln (100units/ml) SC SCH ×4 (06:45→23:03)
--- NOTE | 2019-11-04 07:15 | NUR ---
Opening Shift Note Assumed care of patient, resting with eyes closed. Patient is catatonic and is unresponsive to name or touch. No S/S of distress/SOB or pain. Respirations appear even and unlabored on room air. Bed is locked in lowest position, side rails up x2, call light within reach, sitter at bedside for safety. Will monitor q1hr and PRN for changes.
[2019-11-04 09:00] VITALS: BP 126/70
--- NOTE | 2019-11-04 11:30 | NUR ---
WOUND CARE NOTE: IN TO SEE PATIENT AT THIS TIME FOR SKIN INTEGRITY MONITORING. SHE HAS CURRENT RADHA SCORE OF 8. PATIENT CONTINUES TO BE NON VERBAL, MAX ASSIST FOR ALL HER ADL'S, INCLUDING TURNING/REPOSITIONING. SHE CONTINUES TO REST ON SPECIALTY AIR MATTRESS, OPTIFOAM GENTLE SACRAL DRESSING PREVENTATIVE INTERVENTIONS. SHE CONTINUES TO BE WOUND FREE AT THIS TIME. SKIN/WOUND CARE PLAN UPDATED. WILL CONTINUE TO MONITOR.
--- NOTE | 2019-11-04 12:15 | NUR ---
Nutrition Followup Notes Wt 43.1 kg Pt is with Regular diet, has refused to eat since 11/03 per RN doc. Pt is awaiting transfer to [facility] facility when bed is available. Pt continues to have 0% PO intake, one intake of 50% on 10/30 per RN note. Consider adding Ensure Enlive TID or alternate nutrition. Refer to nutrition recommendations noted below under Comments. Est Energy needs: 9718-1032 kcals (25-30 kcal/kg IBW 56.8kg) Est Protein needs: 57-62 gms/day (1-1.1 gm/kg IBW 56.8kg) Will continue to monitor and reassess prn. Labs: Pt with no new labs: Alb 3.1L BM: Pt with 1 BM noted on 10/29 per Rn note Skin: BS 7 high risk, full details in patient care note PES: 1) Inadequate oral intake r/t pt with a poor appetite aeb 64% IBW, BMI of 13.9 kg/m2, pt refusal to eat Comments Will continue to monitor PO status, skin status, pertinent labs and weight trends. Will f/u in 3-5 days. 1) Consider alternate nutrition per MD approval. 2) If GI is accessible, consider Osmolite 1.2 at 50 ml/hr per MD approval
[2019-11-04 13:00] VITALS: BP 133/77
--- NOTE | 2019-11-04 16:08 | NUR ---
Shea catheter insertion Patient assessed and determined to be in need of shea catheter. Order obtained from [facility]. Shea catheter 14 gauge Latvian inserted with clean sterile technique. Patient tolerated well.
[2019-11-04 17:00] VITALS: BP 140/84
--- NOTE | 2019-11-04 21:55 | NUR ---
TELE/PSYCH CONSULTATION HAS BEEN COMPLETED. AWAITING FINALIZED REPORT.
[2019-11-04 22:00] VITALS: BP 115/71
--- NOTE | 2019-11-04 23:16 | NUR ---
FINALIZED TELE/PSYCH REPORT HAS BEEN PLACED IN FOLDER.
[2019-11-05] MEDS: SODIUM CHLORIDE 0.9% 1,000 ML IV SCH ×3 (01:30→21:30)
[2019-11-05 05:00] VITALS: BP 126/75
[2019-11-05] MEDS: LORazepam 2MG/ML-1ML VIAL IV SCH ×5 (06:00→23:38)
[2019-11-05] MEDS: ACCU-CHEK COMFORT CURVE STRIP VI SCH ×4 (06:44→21:17)
[2019-11-05] MEDS: InsuLIN REG 1unit/0.01ml Soln (100units/ml) SC SCH ×4 (06:44→21:17)
[2019-11-05 08:00] VITALS: BP 138/80
[2019-11-05 08:48] VITALS: BP 138/80
--- NOTE | 2019-11-05 11:59 | NUR ---
re-assessment Patient is awake and alert today. Patient informed me she doesn't remember how she came to the hospital. Patient stated she doesn't remember anything prior to yesterday. Patient informed me the last thing she remembers is being at home. Patient asked me about eating. She said she was hungry and wanted to eat. Patients sitter informed me patient has been asking her what happened and why she was in the hospital. Patient ate her breakfast this morning. Patient remembers speaking to her yesterday. I informed patient I was going to request another tele psych and she needed to tell them what she giovany to me. Patient agreed. Patient will need a follow up appointment with a psychiatrist and weekly appointments with a therapist to get to the trauma and reason for the catatonia. Dr Levi has been notified and agrees to discharge plan if tele psych clears patient. Waiting on tele psych now. Addendum: 11/05/19 at 1206 by Ivis CORDERO Amended: Links added.
[2019-11-05 13:00] VITALS: BP 143/87
--- NOTE | 2019-11-05 13:24 | NUR ---
CALLED I T REGARDING TELE PSY CAMERA DOES NOT WORK. I T TECH STATED WILL COME UP TO CHECK.
--- NOTE | 2019-11-05 13:28 | NUR ---
PSYCHIATRIST DR. HERNANDEZ MADE AWARE I T ARE TRYING TO FIX THE PROBLEM, WILL CALL DR. HERNANDEZ WHEN TELE CAMERA IS FIXED.
--- NOTE | 2019-11-05 14:45 | NUR ---
I T IS AT BEDSIDE FIXING TELE PSY MACHINE.
--- NOTE | 2019-11-05 15:20 | NUR ---
CALLED TELEMEDI VIA [phone] SPOKE TO MICKIE COARDO MADE AWARE ANOTHER [email or web address] TELE MACHINE IN THE PT ROOM READY FOR USE. MICKIE STATED WILL PASS THE MESSAGE TO DR. HERNANDEZ.
--- NOTE | 2019-11-05 15:22 | NUR ---
CALLED PSYCHIATRIST DR. HERNANDEZ VIA [phone] REGARDING ANOTHER HANSON WAS BROUGHT TO THE ROOM READY FOR USE. STATED WILL TRY AGAIN IN 30MIN.
--- NOTE | 2019-11-05 16:15 | NUR ---
1650: RECEIVED PHONE CALL FROM PSYCHIATRIST DR. HERNANDEZ. PER DR. HERNANDEZ PT IS CONFUSES, COULD NOT ANSWER HIS QUESTIONS. MD ORDERED TO CONTINUE /50 HOLD AT THIS TIME. WILL NOTIFY DR. SANFORD.
[2019-11-05 16:47] VITALS: BP 145/79
--- NOTE | 2019-11-05 18:09 | NUR ---
S/W José from ER admitting regarding helping patient with insurance. Stated that he will let the person coming in for the next shift to go and help patient apply. Will wait for phone call from ER admitting
--- NOTE | 2019-11-05 18:15 | NUR ---
S/W patient's nurse Van regarding new 5150. Stated that it was renewed yester day and she will fax new copy. Will wait before placement
--- NOTE | 2019-11-05 18:32 | NUR ---
Received call from Amy from the admitting office regarding insurance. Patient has regular insurance. She will fax new facesheet and will continue to seek placement after new 5150 is received
--- NOTE | 2019-11-05 19:35 | NUR ---
assumed care, pt. awake, sitter at bedside, not in distress.
--- NOTE | 2019-11-05 20:23 | NUR ---
S/W Oralia regarding new 5150. Stated that Van faxed it before her shift ended. Waiting for new 5150
[2019-11-05 21:35] VITALS: BP 132/73
--- NOTE | 2019-11-06 03:54 | NUR ---
Late entry; S/W Oralia regarding not receiving 5150. Stated that it was faxed but Call Center still have not received it. Still waiting for 5150 to be faxed for further placement
--- NOTE | 2019-11-06 03:57 | NUR ---
S/W ARACELY Piper regarding 5150 still needing for further placement.
[2019-11-06 05:00] VITALS: BP 122/68
--- NOTE | 2019-11-06 05:54 | NUR ---
Endorse to AM shift. Waiting for 6277 to be faxed
[2019-11-06] MEDS: LORazepam 2MG/ML-1ML VIAL IV SCH ×2 (06:00→08:47)
[2019-11-06] MEDS: InsuLIN REG 1unit/0.01ml Soln (100units/ml) SC SCH ×2 (06:10→11:30)
[2019-11-06] MEDS: ACCU-CHEK COMFORT CURVE STRIP VI SCH ×2 (06:10→12:53)
[2019-11-06 08:00] VITALS: BP 140/82
[2019-11-06] MEDS: SODIUM CHLORIDE 0.9% 1,000 ML IV SCH (08:18)
--- NOTE | 2019-11-06 08:19 | NUR ---
[facility] has received new 5150.
--- NOTE | 2019-11-06 08:31 | NUR ---
Packet referred to the following facilities: [facility]
[2019-11-06 08:37] VITALS: BP 140/82
--- NOTE | 2019-11-06 09:10 | NUR ---
Yvette from [facility] ([phone]) called that patient got accepted. Paged the Farm Facility Manager.
--- NOTE | 2019-11-06 10:00 | NUR ---
Daughter Elen ([phone]) called if the Oceanographer Assistant/Hat Maker can call her regarding patient's transfer to a psych facility. Elen requested if patient can be transferred to a facility w/in [facility]. Informed Elen that I'm still waiting for the Oceanographer Assistant to call back regarding the transfer, there's no assurance if her request will be granted.
--- NOTE | 2019-11-06 10:00 | NUR ---
PATIENT RECEIVED FULL LINEN CHANGE . PATIENT HAD HER HAIR WASHED, COMBED, AND BRAIDED.
--- NOTE | 2019-11-06 11:00 | NUR ---
Miquel ([phone]; Password: "[email or web address]") called. requested to speak with the doctor regarding patient's transfer to a psych facility. Will inform the MD.
--- NOTE | 2019-11-06 11:19 | NUR ---
Paged the Pottery Machine Operator.
--- NOTE | 2019-11-06 11:25 | NUR ---
Tori Hou at bedside. Patient wants to go home. Dr. Levi explained to patient that as per psychiatrist recommendations, she will be transferred to [facility].
--- NOTE | 2019-11-06 11:37 | NUR ---
Manager Communication Lala called back. Lala made aware patient's and daughter want to talk to her regarding patient's transfer.
--- NOTE | 2019-11-06 11:59 | NUR ---
Patient's Miquel called again insisting that he does not want the patient be transferred to any facility today unless he said so. Miquel said he will come over to the hospital. Will page the MD.
--- NOTE | 2019-11-06 11:59 | NUR ---
I called patient's Miquel [phone]-he provided me with password "[email or web address]"-he is concerned about the location of [facility], he would rather have her go to one near [place] or to [place] which is closer to where family lives. I explained the process of looking for inpatient psychiatric placement, and that several facilities had been reached out to including [place] but no beds were available. He asked if he could take her home until we find a different facility, and I told him that once she leaves this facility we can not continue to work on placement. He is going to speak with his family and give me a call back.
--- NOTE | 2019-11-06 12:01 | NUR ---
Paged Custodial Supervisor
--- NOTE | 2019-11-06 12:07 | NUR ---
Informed Tori Hou that patient's insisted that he does not want patient to be transferred to any facility today unless he said so.
--- NOTE | 2019-11-06 12:16 | NUR ---
Informed Charge Nurse Paras that patient's called again, patient's daughter called again, and patient's mother called. Waiting for Macadam Raker Lala to call back.
[2019-11-06 13:00] VITALS: BP 151/97
--- NOTE | 2019-11-06 13:28 | NUR ---
Spoke w/ Tori Hou that patient's José Valladares) is at the Main Lobby, waiting to sign the AMA form so he could picker / packer the patient, refused that patient be transferred to [facility]. Dr. Levi said patient is on 5150 Hold, ordered to call the House Sup, if House Sup said family can sign the AMA form, let the patient leave AMA.
--- NOTE | 2019-11-06 13:30 | NUR ---
Called Dwaine Lagos. Yolis made aware patient's is at the Main Lobby, waiting for the AMA form he will sign so he could seed cone picker the patient; and family refused that patient be transferred to [facility] in [place]; patient is on 5150 hold. and family wanted to seed cone picker the patient so they could take her home and find a behavioral facility of their choice. Dwaine Lagos said to call the Fire Engine Pump Operator Dept.
--- NOTE | 2019-11-06 13:34 | NUR ---
Received a call from ER Nurse, transferred the call to [facility]. Spoke w/ Stephanie [facility] Report given that patient is on 5150 application/hold, to be transferred to a psych facility as recommended by Psychiatrist, patient got accepted at [facility] but patient refused, insisted she goes home, patient is confused, has catatonic schizoprenia, patient's and family refused that patient be transferred to [facility] in [place]. José (Ricki Andrea insisted that he will sign the AMA form, pickup the patient so they could take her home and take her to a behavioral facility of their choice. Stephanie from [facility] provided w/ patient's name and date for reference. Property Management Supervisor Ivis made aware. Informed Charge Nurse
--- NOTE | 2019-11-06 13:45 | NUR ---
Explained to José (Miquel) the risks and benefits of patient leaving the hospital against medical advice (AMA). José verbalized understanding, signed the AMA form for the patient.
--- NOTE | 2019-11-06 14:00 | NUR ---
AMA Note EMILEE HANKS stated she wants to leave the hospital Against Medical Advice (AMA). Patient encouraged to stay for transfer to a facility. José refused that patient be transferred to [facility], insisted they will take the patient home and find a behavioral facility of their choice. Tori Hou MD notified of patient and /family's wishes. Patient and advised of the risks and benefits of leaving AMA. Patient has catatonic schizoprenia. IV line removed, IV catheter intact, pressure dressing applied, Rachel catheter removed. verbalized understanding, signed the AMA form for the patient. Patient encouraged to return to the ER if symptoms do not improve or worsen. No distress noted at time of departure.
== END 2019-11-06 14:00 | disposition left against medical advice (07) | DRG 91 ==
LOC: ER 13:27 → EDBD 13:27 → TELE 13:28 → TELE-WESTW 19:55
PROVIDERS: ATTEND Family Medicine
DX: G92 Toxic encephalopathy (principal); E43 Unspecified severe protein-calorie malnutrition; F20.2 Catatonic schizophrenia; Z68.1 Body mass index [BMI] 19.9 or less, adult; E86.0 Dehydration; E16.2 Hypoglycemia, unspecified; F17.200 Nicotine dependence, unspecified, uncomplicated; Z82.49 Family history of ischemic heart disease and other diseases of the circulatory system; Z83.3 Family history of diabetes mellitus; Z20.828 Contact with and (suspected) exposure to other viral communicable diseases; Z53.29 Procedure and treatment not carried out because of patient's decision for other reasons
CPT/HCPCS: 36415; 70450; 70551; 70553; 71045; 80053; 80061; 80307; 80320; 81001; 82607; 82962; 83036; 83605; 83735; 84439; 84443; 85025; 85379; 87426; 93005; 97163; C9113; G0378; J1815; J7042

== ENCOUNTER 2023-05-02 11:01 | Inpatient (IN) | payer SELFPAY ==
[~2023-05-02] VITALS: Ht 165.1 cm; Wt 77.0 kg
[2023-05-02 11:35] LABS: Urine Bacteria FEW /hpf (None Seen); Urine Blood Negative /uL (Negative); Urine Clarity HAZY (Clear); Urine Color Yellow (Yellow); Urine Hyaline Cast MOD /lpf (0 - 2); Urine Mucus FEW (None Seen); Urine Protein, UAD 1+ (Negative); Urine WBC 13 /hpf (0 - 5); Urine pH 6.5 (5.0-8.0)
[2023-05-02 11:51] LABS: Basophils # (auto) 0.1 10 ^3/uL (0-0.2); Basophils % (auto) 0.8 % (0.0-2.0); Eosinophils # (auto) 0.1 10 ^3/uL (0-0.8); Eosinophils % (auto) 0.8 % (0.0-7.0); Hematocrit 44.1 % (36.0-46.0); Hemoglobin 14.7 g/dL (12.2-16.2); Lymphocytes # (auto) 2.6 10 ^3/uL (0.4-5.4); Lymphocytes % (auto) 23.8 % (10.0-50.0); Mean Corpuscular Hemoglobin 29.1 pg (28.0-32.0); Mean Corpuscular Hgb Conc. 33.3 g/dL (32.0-36.0); Mean Corpuscular Volume 87.4 fL (80.0-100.0); Monocytes % (auto) 9.4 % (0.0-12.0); Neutrophils # (auto) 7.1 10 ^3/uL (1.6-8.6); Neutrophils % (auto) 65.2 % (37.0-80.0); Red Blood Cells 5.05 10^6/uL (4.0-5.20); Red Cell Distribution Width 14.5 % (11.8-14.3); White Blood Cell 10.9 10^3/uL (4.4-10.8)
[2023-05-02 12:09] LABS: Alanine Aminotransferase 64 U/L (7-40); Albumin 4.4 g/dL (3.2-4.8); Alkaline Phosphatase 135 U/L (46-116); Anion Gap 7 (5-15); Aspartate Aminotransferase 42 U/L (13-40); BUN/Creatinine Ratio 37.1 (10.0-20.0); Blood Urea Nitrogen 33 mg/dL (9-23); Calcium 9.9 mg/dL (8.7-10.4); Carbon Dioxide 27 mmol/L (20-30); Chloride 104 mmol/L (98-107); Creatine Kinase IFCC 33 U/L (34-145); Glucose 119 mg/dL (74-106); Potassium 3.5 mmol/L (3.5-5.1); Sodium 138 mmol/L (136-145)
[2023-05-02 12:10] LABS: Bilirubin, Total 0.4 mg/dL (0.2-1.0); Total Protein 6.8 g/dL (5.7-8.2)
[2023-05-02] MEDS: SODIUM CHLORIDE 0.9% 1,000 ML IV ONE (12:10)
[2023-05-02] MEDS: ASPirin 325 MG TAB PO ONE (12:30)
[2023-05-02 12:53] LABS: Amphetamine Screen, Urine Neg (NEGATIVE); Barbiturate Scree,Urine Neg (NEGATIVE); Benzodiazephine Screen, Urine Neg (NEGATIVE)
[2023-05-02 12:54] LABS: Cannabinoid Screen, Urine Neg (NEGATIVE); Cocaine Screen, Urine Neg (NEGATIVE); Opiate Scree,Urine Neg (NEGATIVE); Phencyclidine Screen, Urine Neg (NEGATIVE)
[2023-05-02 13:20] VITALS: PULSE 76; RESP 20; O2SAT 97
[2023-05-02 13:47] LABS: Hepatitis B Surface Antigen Negative (Negative)
[2023-05-02] MEDS: cefTRIAXone 1GM/50ML D5W 50 ML IV ONE (13:55)
[2023-05-02 14:07] LABS: Hepatitis A Ab IgM Negative
[2023-05-02] MEDS: SODIUM CHLORIDE 0.9% 1,000 ML IV SCH (14:07)
[2023-05-02 14:08] LABS: Hepatitis B Core IgM Negative; Hepatitis C Antibody Negative (Negative)
[2023-05-02] MEDS ORDERED: AMPH20TA2 PO (15:00)
[2023-05-02] MEDS ORDERED: FLUO60TA7 PO (15:00)
[2023-05-02] MEDS ORDERED: IBUP-1456 PO (15:00)
[2023-05-02] MEDS ORDERED: AMOX250C3 PO (15:00)
[2023-05-02] MEDS ORDERED: LORA-1121 PO (15:00)
[2023-05-02] MEDS ORDERED: RIS1T PO (15:00)
[2023-05-02] MEDS: ACETAMINOPHEN 325 MG TAB PO PRN (17:35)
[2023-05-02] MEDS: LORazepam 0.5 MG TAB PO SCH (17:35)
[2023-05-02] MEDS: AMPHETAMINE PO SCH (18:00)
[2023-05-02] MEDS: DEXTROAMPHETAMINE PO SCH (18:00)
[2023-05-02 19:45] VITALS: PULSE 60; RESP 18; O2SAT 98
[2023-05-02] MEDS ORDERED: LORazepam 0.5 MG TAB PO SCH (22:00)
[2023-05-03] MEDS: ONDANSETRON HCL 4 MG/2 ML VIAL IV ONE (01:33)
[2023-05-03 05:02] LABS: Basophils # (auto) 0.1 10 ^3/uL (0-0.2); Basophils % (auto) 0.8 % (0.0-2.0); Eosinophils # (auto) 0.1 10 ^3/uL (0-0.8); Hematocrit 36.9 % (36.0-46.0); Hemoglobin 12.1 g/dL (12.2-16.2); Lymphocytes # (auto) 1.8 10 ^3/uL (0.4-5.4); Lymphocytes % (auto) 19.4 % (10.0-50.0); Mean Corpuscular Hgb Conc. 32.9 g/dL (32.0-36.0); Mean Corpuscular Volume 88.2 fL (80.0-100.0); Monocytes # (auto) 0.7 10 ^3/uL (0-1.3); Monocytes % (auto) 7.6 % (0.0-12.0); Neutrophils # (auto) 6.5 10 ^3/uL (1.6-8.6); Neutrophils % (auto) 71.2 % (37.0-80.0); Red Blood Cells 4.19 10^6/uL (4.0-5.20); Red Cell Distribution Width 14.2 % (11.8-14.3); White Blood Cell 9.1 10^3/uL (4.4-10.8)
[2023-05-03 05:19] LABS: Alanine Aminotransferase 47 U/L (7-40); Albumin 3.5 g/dL (3.2-4.8); Alkaline Phosphatase 101 U/L (46-116); Anion Gap 4 (5-15); Aspartate Aminotransferase 33 U/L (13-40); BUN/Creatinine Ratio 30.8 (10.0-20.0); Bilirubin, Total 0.4 mg/dL (0.2-1.0); Blood Urea Nitrogen 20 mg/dL (9-23); Calcium 8.5 mg/dL (8.5-10.1); Carbon Dioxide 29 mmol/L (20-30); Chloride 109 mmol/L (98-107); Glucose 98 mg/dL (74-106); Potassium 3.3 mmol/L (3.5-5.1); Sodium 142 mmol/L (136-145); Total Protein 5.6 g/dL (5.7-8.2)
[2023-05-03] MEDS: ASPirin 81 mg TAB PO SCH (08:41)
[2023-05-03] MEDS: FLUoxetine HCL 20 MG CAP PO SCH (08:43)
[2023-05-03] MEDS: ENOXAPARIN SOD 40 MG/0.4 ML SYRINGE SC SCH (08:43)
[2023-05-03] MEDS: risperiDONE 1 MG TAB PO SCH (08:43)
[2023-05-03] MEDS: cefTRIAXone 1GM/50ML D5W 50 ML IV SCH (08:43)
[2023-05-03 08:57] VITALS: BP 130/69; PULSE 65; RESP 16; TEMP 98.2; O2SAT 96
[2023-05-03] MEDS: traMADol HCL 50 MG TAB PO PRN (12:58)
[2023-05-03 13:00] VITALS: BP 129/60; PULSE 65; RESP 16; TEMP 97.7; O2SAT 96
[2023-05-03 20:00] VITALS: BP 132/72; PULSE 69; RESP 17; RESP 18; TEMP 98.4; O2SAT 91
[2023-05-03] MEDS: ATORVASTATIN 20 MG TAB PO SCH (21:57)
[2023-05-03] MEDS: POTASSIUM CHL 20 Meq TABLET PO ONE (21:59)
[2023-05-03 22:00] VITALS: BP 132/72; PULSE 69; RESP 18; TEMP 98.4; O2SAT 91
[2023-05-04 04:00] VITALS: BP 124/64; PULSE 72; RESP 18; TEMP 98.2; O2SAT 95
[2023-05-04 07:30] VITALS: PULSE 69
[2023-05-04 07:57] LABS: Anion Gap 3 (5-15); BUN/Creatinine Ratio 20.6 (10.0-20.0); Blood Urea Nitrogen 13 mg/dL (9-23); Calcium 8.4 mg/dL (8.5-10.1); Carbon Dioxide 29 mmol/L (20-30); Chloride 108 mmol/L (98-107); Cholesterol 126 mg/dL (< 200); Glucose 92 mg/dL (74-106); HDL Cholesterol 30 mg/dL (40-59); LDL Cholesterol 83 mg/dL (< 100); Potassium 3.2 mmol/L (3.5-5.1); Sodium 140 mmol/L (136-145); Triglycerides 126 mg/dL (< 150)
[2023-05-04] MEDS ORDERED: ATO40T PO (08:30)
[2023-05-04] MEDS ORDERED: RIS1T PO (08:30)
[2023-05-04] MEDS ORDERED: ASPI-628 PO (08:30)
[2023-05-04] MEDS ORDERED: CIPR-173 PO (08:30)
[2023-05-04] MEDS ORDERED: FLUO20TA36 PO (08:30)
[2023-05-04 08:36] VITALS: BP 129/62; PULSE 70; RESP 12; TEMP 98.1; O2SAT 95
[2023-05-04 11:25] VITALS: TEMP 36.7
== END 2023-05-04 12:40 | disposition home or self-care (01) | DRG 689 ==
LOC: ER 11:01 → OVERFLOW 13:53 → CENTRAL 05-03 05:15
PROVIDERS: ADMIT Nurse Practitioner Family; ATTEND Family Medicine
DX: N30.00 Acute cystitis without hematuria (principal); G93.41 Metabolic encephalopathy; I21.4 Non-ST elevation (NSTEMI) myocardial infarction; R62.7 Adult failure to thrive; K76.0 Fatty (change of) liver, not elsewhere classified; K80.20 Calculus of gallbladder without cholecystitis without obstruction; F20.9 Schizophrenia, unspecified; F17.200 Nicotine dependence, unspecified, uncomplicated; F31.9 Bipolar disorder, unspecified; K21.9 Gastro-esophageal reflux disease without esophagitis; I10 Essential (primary) hypertension; F41.9 Anxiety disorder, unspecified; Z91.199 Patient's noncompliance with other medical treatment and regimen due to unspecified reason; Z56.0 Unemployment, unspecified; Z82.49 Family history of ischemic heart disease and other diseases of the circulatory system; Z83.3 Family history of diabetes mellitus; Z68.28 Body mass index [BMI] 28.0-28.9, adult
CPT/HCPCS: 36415; 70450; 71045; 76705; 80048; 80053; 80061; 80074; 80307; 81001; 82140; 82550; 83605; 83735; 83880; 84484; 85025; 87086; 93005; 93306; 96361; 96365; G0378; J2405